=== PATIENT | female | born 1970 | race African-American/Black ===

== ENCOUNTER 2017-04-27 08:31 | Emergency (ER) | payer OTHER ==
[~2017-04-27] VITALS: Ht 175.3 cm; Wt 137.0 kg
[2017-04-27 08:43] VITALS: BP 130/107
[2017-04-27] MEDS ORDERED: ONDANSETRON 4MG ODT PO ONE (12:30)
== END 2017-04-27 13:53 | disposition left against medical advice (07) ==
LOC: ER 08:34
DX: F32.9 Major depressive disorder, single episode, unspecified (principal); R11.2 Nausea with vomiting, unspecified; E11.9 Type 2 diabetes mellitus without complications; F20.9 Schizophrenia, unspecified; Z90.49 Acquired absence of other specified parts of digestive tract
CPT/HCPCS: 82962; 99284

== ENCOUNTER 2017-10-19 10:11 | Emergency (ER) | payer OTHER ==
[~2017-10-19] VITALS: Ht 170.2 cm; Wt 137.0 kg
[2017-10-19 13:00] VITALS: BP 136/71
== END 2017-10-19 13:00 | disposition home or self-care (01) ==
LOC: ER 11:55
DX: F25.9 Schizoaffective disorder, unspecified (principal); F32.9 Major depressive disorder, single episode, unspecified
CPT/HCPCS: 93005; 99284; Z7610

== ENCOUNTER 2017-12-08 14:42 | Emergency (ER) | payer OTHER ==
[~2017-12-08] VITALS: Ht 170.2 cm; Wt 126.3 kg
[2017-12-08 16:44] LABS: BASOPHILS % 0.7 % (0.0-2.0); EOSINOPHILS % 0.9 % (0.0-5.0); HEMATOCRIT. 39.6 % (36.0-48.0); HEMOGLOBIN. 13.4 g/dL (12.0-16.0); LYMPHOCYTES % 35.1 % (20.0-50.0); MEAN CORPUSCULAR HEMOGLOBIN 29.7 pg (28.0-32.0); MONOCYTES % 3.9 % (2.0-8.0); NEUTROPHILS % 59.4 % (40.0-76.0); RED CELL DISTRIBUTION WIDTH 15.5 % (11.6-14.6)
[2017-12-08 16:47] LABS: CHLORIDE 105 mEq/L (98-107)
[2017-12-08 16:49] LABS: INR 1.1
[2017-12-08] MEDS ORDERED: VISCOUS LIDOCAINE 2% 15 ML UDC PO STA (17:19)
[2017-12-08] MEDS ORDERED: FAMOTIDINE 20MG/2ML VIAL IV STA (17:19)
[2017-12-08] MEDS ORDERED: MAGNESIUM/ALUMINUM HYDROXIDE/SIMETHICONE 30ML UDC PO STA (17:19)
[2017-12-08] MEDS ORDERED: SODIUM CHLORIDE 0.9% 1,000 ML IV ONE (17:19)
[2017-12-08 19:40] LABS: CLARITY URINE CLEAR (CLEAR); COLOR URINE YELLOW (YELLOW); KETONES URINE TRACE (NEGATIVE); LEUKOCYTE ESTERASE URINE TRACE (NEGATIVE); NITRITE URINE NEGATIVE (NEGATIVE); OCCULT BLOOD URINE 2+ (NEGATIVE); PROTEIN URINE NEGATIVE (NEGATIVE); SPECIFIC GRAVITY URINE 1.019 (1.005-1.030); UROBILINOGEN URINE 0.2 E.U./dL (0.2-1.0)
[2017-12-08 20:00] LABS: *BARBITURATES SCREEN URINE NEGATIVE (NEGATIVE)
[2017-12-08 20:01] LABS: *AMPHETAMINES SCREEN URINE NEGATIVE (NEGATIVE); *COCAINE SCREEN URINE NEGATIVE (NEGATIVE); METHADONE URINE SCREEN NEGATIVE (NEGATIVE); OPIATES URINE SCREEN NEGATIVE (NEGATIVE); PHENCYCLIDINE URINE SCREEN NEGATIVE (NEGATIVE)
[2017-12-08 20:02] LABS: CANNABINOID URINE SCREEN NEGATIVE (NEGATIVE)
[2017-12-08 20:19] LABS: *BENZODIAZEPINES SCREEN URINE PRESUMTIVE POSITIVE (NEGATIVE)
[2017-12-08 21:22] LABS: HCG SCREEN NEGATIVE
[2017-12-08 22:46] VITALS: BP 129/80
== END 2017-12-08 22:47 | disposition home or self-care (01) ==
LOC: ER 15:51
DX: K29.70 Gastritis, unspecified, without bleeding (principal); R31.9 Hematuria, unspecified; E86.0 Dehydration; I10 Essential (primary) hypertension; M13.862 Other specified arthritis, left knee; F32.9 Major depressive disorder, single episode, unspecified; E11.9 Type 2 diabetes mellitus without complications; F20.9 Schizophrenia, unspecified; E66.9 Obesity, unspecified; Z68.41 Body mass index [BMI] 40.0-44.9, adult; Z90.49 Acquired absence of other specified parts of digestive tract; Z88.0 Allergy status to penicillin
CPT/HCPCS: 36415; 73560; 74176; 80053; 80305; 81003; 82962; 83690; 84703; 85025; 85610; 96361; 96374; 99285; J3490; J7030; A4315

== ENCOUNTER 2017-12-29 12:01 | Emergency (ER) | payer OTHER ==
[~2017-12-29] VITALS: Ht 170.2 cm; Wt 113.0 kg
[2017-12-29] MEDS ORDERED: MAGNESIUM/ALUMINUM HYDROXIDE/SIMETHICONE 30ML UDC PO STA (16:39)
[2017-12-29] MEDS ORDERED: VISCOUS LIDOCAINE 2% 15 ML UDC PO STA (16:39)
[2017-12-29 18:02] LABS: BASOPHILS % 0.6 % (0.0-2.0); CHLORIDE 100 mEq/L (98-107); EOSINOPHILS % 0.7 % (0.0-5.0); HEMOGLOBIN. 12.5 g/dL (12.0-16.0); LYMPHOCYTES % 34.6 % (20.0-50.0); MEAN CORPUSCULAR HEMOGLOBIN 28.8 pg (28.0-32.0); MEAN CORPUSCULAR VOLUME 87.8 fL (81.0-99.0); MEAN PLATELET VOLUME 10.8 fl (7.4-10.4); MONOCYTES % 4.9 % (2.0-8.0); NEUTROPHILS % 59.2 % (40.0-76.0); PLATELET 194 x1000/uL (130-400); RED BLOOD CELL COUNT 4.33 mill/uL (4.2-5.4); RED CELL DISTRIBUTION WIDTH 15.6 % (11.6-14.6)
[2017-12-29 18:06] LABS: HCG SCREEN NEGATIVE
[2017-12-29 19:15] LABS: CLARITY URINE CLEAR (CLEAR); COLOR URINE YELLOW (YELLOW); KETONES URINE NEGATIVE (NEGATIVE); LEUKOCYTE ESTERASE URINE NEGATIVE (NEGATIVE); NITRITE URINE NEGATIVE (NEGATIVE); OCCULT BLOOD URINE 2+ (NEGATIVE); PROTEIN URINE NEGATIVE (NEGATIVE); SPECIFIC GRAVITY URINE 1.013 (1.005-1.030); UROBILINOGEN URINE 0.2 E.U./dL (0.2-1.0)
[2017-12-29 22:39] VITALS: BP 146/65
== END 2017-12-29 22:41 | disposition home or self-care (01) ==
LOC: ER 12:01
DX: R10.13 Epigastric pain (principal); E11.9 Type 2 diabetes mellitus without complications; R03.0 Elevated blood-pressure reading, without diagnosis of hypertension; J98.11 Atelectasis; J90 Pleural effusion, not elsewhere classified; F20.9 Schizophrenia, unspecified; Z88.0 Allergy status to penicillin; Z90.49 Acquired absence of other specified parts of digestive tract
CPT/HCPCS: 36415; 74176; 80053; 81003; 83605; 83690; 84703; 85025; 93005; 99285

== ENCOUNTER 2018-05-31 17:11 | Emergency (ER) | payer OTHER ==
[~2018-05-31] VITALS: Ht 165.1 cm; Wt 113.6 kg
[2018-05-31 20:06] LABS: CLARITY URINE CLEAR (CLEAR); COLOR URINE YELLOW (YELLOW); KETONES URINE NEGATIVE (NEGATIVE); LEUKOCYTE ESTERASE URINE NEGATIVE (NEGATIVE); NITRITE URINE NEGATIVE (NEGATIVE); OCCULT BLOOD URINE 3+ (NEGATIVE); PH URINE 6.5 (4.5-8.0); PROTEIN URINE NEGATIVE (NEGATIVE); SPECIFIC GRAVITY URINE 1.014 (1.005-1.030); UROBILINOGEN URINE 0.2 E.U./dL (0.2-1.0)
[2018-05-31 22:34] VITALS: BP 130/78
== END 2018-05-31 22:36 | disposition home or self-care (01) ==
LOC: ER 17:11
DX: F25.9 Schizoaffective disorder, unspecified (principal); D64.9 Anemia, unspecified; F31.9 Bipolar disorder, unspecified; E11.9 Type 2 diabetes mellitus without complications; Z90.49 Acquired absence of other specified parts of digestive tract; Z87.19 Personal history of other diseases of the digestive system
CPT/HCPCS: 99283

== ENCOUNTER 2018-07-10 14:04 | Emergency (ER) | payer OTHER ==
[~2018-07-10] VITALS: Ht 170.2 cm; Wt 131.0 kg
[2018-07-10] MEDS ORDERED: BENZTROPINE MESYLATE 0.5MG TABLET PO ONE (16:15)
[2018-07-10 17:10] LABS: BASOPHILS % 0.3 % (0.0-2.0); EOSINOPHILS % 0.8 % (0.0-5.0); HEMATOCRIT. 34.8 % (36.0-48.0); HEMOGLOBIN. 11.3 g/dL (12.0-16.0); LYMPHOCYTES % 30.1 % (20.0-50.0); MEAN CORPUSCULAR HEMOGLOBIN 28.5 pg (28.0-32.0); MEAN CORPUSCULAR VOLUME 87.7 fL (81.0-99.0); MEAN PLATELET VOLUME 10.3 fl (7.4-10.4); MONOCYTES % 6.5 % (2.0-8.0); NEUTROPHILS % 62.3 % (40.0-76.0); PLATELET 216 x1000/uL (130-400); RED BLOOD CELL COUNT 3.96 mill/uL (4.2-5.4); RED CELL DISTRIBUTION WIDTH 16.4 % (11.6-14.6)
[2018-07-10 17:14] LABS: HCG SCREEN NEGATIVE
[2018-07-10 17:15] LABS: CHLORIDE 104 mEq/L (98-107)
[2018-07-10 17:26] LABS: CREATINE KINASE 42 IU/L (26-192)
[2018-07-10 20:56] VITALS: BP 128/98
== END 2018-07-10 20:58 | disposition home or self-care (01) ==
LOC: ER 14:04
DX: S39.012A Strain of muscle, fascia and tendon of lower back, initial encounter (principal); R25.1 Tremor, unspecified; F32.9 Major depressive disorder, single episode, unspecified; E11.9 Type 2 diabetes mellitus without complications; F20.9 Schizophrenia, unspecified; D64.9 Anemia, unspecified; F31.9 Bipolar disorder, unspecified; Z90.49 Acquired absence of other specified parts of digestive tract; Z88.0 Allergy status to penicillin; Z87.442 Personal history of urinary calculi; W10.8XXA Fall (on) (from) other stairs and steps, initial encounter; Y93.89 Activity, other specified; Y92.89 Other specified places as the place of occurrence of the external cause; Y99.8 Other external cause status
CPT/HCPCS: 36415; 82550; 84443; 84484; 84703; 99284

== ENCOUNTER 2018-11-11 19:19 | Emergency (ER) | payer OTHER ==
[~2018-11-11] VITALS: Ht 170.2 cm; Wt 127.0 kg
[2018-11-11] MEDS ORDERED: SODIUM CHLORIDE 0.9% 1,000 ML IV ONE (23:04)
[2018-11-11] MEDS ORDERED: KETOROLAC 30MG/ML VIAL IV STA (23:04)
[2018-11-11] MEDS ORDERED: LORAZEPAM 2MG/ML CPJ IV ONE (23:15)
[2018-11-11 23:19] LABS: CLARITY URINE CLOUDY (CLEAR); COLOR URINE YELLOW (YELLOW); KETONES URINE NEGATIVE (NEGATIVE); LEUKOCYTE ESTERASE URINE NEGATIVE (NEGATIVE); NITRITE URINE NEGATIVE (NEGATIVE); OCCULT BLOOD URINE 2+ (NEGATIVE); PH URINE 6.5 (4.5-8.0); PROTEIN URINE NEGATIVE (NEGATIVE); SPECIFIC GRAVITY URINE 1.014 (1.005-1.030); UROBILINOGEN URINE 0.2 E.U./dL (0.2-1.0)
[2018-11-11 23:45] VITALS: BP 164/83
[2018-11-11 23:56] LABS: BASOPHILS % 0.6 % (0.0-2.0); EOSINOPHILS % 0.5 % (0.0-5.0); HEMATOCRIT. 34.3 % (36.0-48.0); HEMOGLOBIN. 11.7 g/dL (12.0-16.0); LYMPHOCYTES % 31.4 % (20.0-50.0); MEAN CORPUSCULAR HEMOGLOBIN 29.9 pg (28.0-32.0); MEAN CORPUSCULAR VOLUME 87.5 fL (81.0-99.0); MEAN PLATELET VOLUME 10.3 fl (7.4-10.4); MONOCYTES % 5.3 % (2.0-8.0); NEUTROPHILS % 62.2 % (40.0-76.0); PLATELET 200 x1000/uL (130-400); RED BLOOD CELL COUNT 3.92 mill/uL (4.2-5.4); RED CELL DISTRIBUTION WIDTH 14.9 % (11.6-14.6)
[2018-11-12 00:04] LABS: CHLORIDE 96 mEq/L (98-107)
== END 2018-11-12 02:33 | disposition home or self-care (01) ==
LOC: ER 19:19
DX: R10.9 Unspecified abdominal pain (principal); E11.9 Type 2 diabetes mellitus without complications; F20.9 Schizophrenia, unspecified; Z88.0 Allergy status to penicillin; Z90.49 Acquired absence of other specified parts of digestive tract
CPT/HCPCS: 36415; 80053; 81003; 81025; 83690; 85025; 96374; 96375; 99283; J1885; J7030

== ENCOUNTER 2019-04-24 11:43 | Emergency (ER) | payer OTHER ==
[~2019-04-24] VITALS: Ht 170.2 cm; Wt 123.2 kg
[2019-04-24] MEDS ORDERED: SODIUM CHLORIDE 0.9% 1,000 ML IV ONE (14:13)
[2019-04-24] MEDS ORDERED: KETOROLAC 30MG/ML VIAL IV STA (14:13)
[2019-04-24 15:39] LABS: CHLORIDE 107 mEq/L (98-107)
[2019-04-24 15:41] LABS: BASOPHILS % 0.4 % (0.0-2.0); EOSINOPHILS % 0.5 % (0.0-5.0); HEMATOCRIT. 35.9 % (36.0-48.0); LYMPHOCYTES % 31.7 % (20.0-50.0); MEAN CORPUSCULAR HEMOGLOBIN 28.9 pg (28.0-32.0); MEAN CORPUSCULAR VOLUME 86.8 fL (81.0-99.0); MEAN PLATELET VOLUME 10.5 fl (7.4-10.4); MONOCYTES % 5.4 % (2.0-8.0); PLATELET 221 x1000/uL (130-400); RED BLOOD CELL COUNT 4.14 mill/uL (4.2-5.4); RED CELL DISTRIBUTION WIDTH 15.9 % (11.6-14.6)
[2019-04-24 16:08] VITALS: BP 151/91
== END 2019-04-24 16:15 | disposition home or self-care (01) ==
LOC: ER 12:06
DX: B34.9 Viral infection, unspecified (principal); E11.9 Type 2 diabetes mellitus without complications; F20.9 Schizophrenia, unspecified; Z88.0 Allergy status to penicillin; Z90.49 Acquired absence of other specified parts of digestive tract
CPT/HCPCS: 36415; 71045; 80053; 85025; 96361; 96374; 99284; J1885; J7030

== ENCOUNTER 2019-06-04 03:59 | Emergency (ER) | payer OTHER ==
[~2019-06-04] VITALS: Ht 172.7 cm; Wt 100.0 kg
[2019-06-04] MEDS ORDERED: OLANZAPINE 5MG TABLET ODT PO ONE ×2 (06:15→07:45)
[2019-06-04] MEDS ORDERED: LORAZEPAM 1MG TABLET PO ONE ×4 (06:15→23:45)
[2019-06-04 06:24] LABS: BASOPHILS % 0.8 % (0.0-2.0); EOSINOPHILS % 1.3 % (0.0-5.0); HEMATOCRIT. 34.1 % (36.0-48.0); HEMOGLOBIN. 11.4 g/dL (12.0-16.0); LYMPHOCYTES % 34.7 % (20.0-50.0); MEAN CORPUSCULAR HEMOGLOBIN 29.1 pg (28.0-32.0); MEAN CORPUSCULAR VOLUME 86.9 fL (81.0-99.0); MEAN PLATELET VOLUME 10.1 fl (7.4-10.4); MONOCYTES % 6.7 % (2.0-8.0); NEUTROPHILS % 56.5 % (40.0-76.0); PLATELET 185 x1000/uL (130-400); RED BLOOD CELL COUNT 3.93 mill/uL (4.2-5.4)
[2019-06-04 06:36] LABS: CHLORIDE 103 mEq/L (98-107)
[2019-06-04 06:40] LABS: ETHANOL BLOOD < 10 mg/dL
[2019-06-04 06:54] LABS: HCG SCREEN NEGATIVE
[2019-06-04] MEDS ORDERED: DIPHENHYDRAMINE 25MG CAPSULE PO ONE (07:45)
[2019-06-04 08:04] LABS: CLARITY URINE CLOUDY (CLEAR); COLOR URINE YELLOW (YELLOW); KETONES URINE NEGATIVE (NEGATIVE); LEUKOCYTE ESTERASE URINE NEGATIVE (NEGATIVE); NITRITE URINE NEGATIVE (NEGATIVE); OCCULT BLOOD URINE 1+ (NEGATIVE); PH URINE 6.5 (4.5-8.0); PROTEIN URINE NEGATIVE (NEGATIVE); UROBILINOGEN URINE 0.2 E.U./dL (0.2-1.0)
[2019-06-04 08:26] LABS: *AMPHETAMINES SCREEN URINE NEGATIVE (NEGATIVE); *BARBITURATES SCREEN URINE NEGATIVE (NEGATIVE); *BENZODIAZEPINES SCREEN URINE NEGATIVE (NEGATIVE); *COCAINE SCREEN URINE NEGATIVE (NEGATIVE); METHADONE URINE SCREEN NEGATIVE (NEGATIVE); OPIATES URINE SCREEN NEGATIVE (NEGATIVE)
[2019-06-04 08:27] LABS: CANNABINOID URINE SCREEN NEGATIVE (NEGATIVE); PHENCYCLIDINE URINE SCREEN NEGATIVE (NEGATIVE)
[2019-06-04] MEDS ORDERED: MAGNESIUM/ALUMINUM HYDROXIDE/SIMETHICONE 30ML UDC PO STA (23:43)
[2019-06-04] MEDS ORDERED: VISCOUS LIDOCAINE 2% 15 ML UDC MM ONE (23:45)
[2019-06-05] MEDS ORDERED: FAMOTIDINE 20MG TABLET PO ONE (10:15)
[2019-06-05] MEDS ORDERED: ACETAMINOPHEN 325MG TABLET PO ONE (10:15)
[2019-06-05 20:01] VITALS: BP 134/74
== END 2019-06-05 21:38 ==
LOC: ER 04:39
DX: T14.91XA Suicide attempt, initial encounter (principal); F20.9 Schizophrenia, unspecified; X78.1XXA Intentional self-harm by knife, initial encounter; E11.9 Type 2 diabetes mellitus without complications; F32.9 Major depressive disorder, single episode, unspecified; Y93.89 Activity, other specified; Y92.89 Other specified places as the place of occurrence of the external cause; Z88.0 Allergy status to penicillin; Z90.49 Acquired absence of other specified parts of digestive tract
CPT/HCPCS: 36415; 80053; 80305; 80307; 80320; 80329; 81003; 81025; 84703; 85025; 99285; Q0163; G0480